=== PATIENT | female | born 1990 | race Caucasian/White ===

== ENCOUNTER 2021-11-16 17:20 | Inpatient (IN) | payer OTHER ==
[2021-11-16] MEDS ORDERED: OXYTOCIN 10 UNIT/1 ML INJ ONE (18:26)
--- NOTE | 2021-11-16 19:18 | History and Physical Report ---
History of Present Illness Date of examination: 11/16/21 Date of admission: 11/16/21 Chief complaint: Contractions, No movements for 3 days. History of present illness: previous section. No care, 33 wks. Past History Past Medical History: no pertinent history - Obstetrical History : 3 Medications and Allergies Allergies Allergy/AdvReac Type Severity Reaction Status Date / Time codeine Allergy Rash Verified 03/09/13 04:06 hydrocodone [Hydrocodone] Allergy Rash Verified 03/09/13 04:06 Home Medications Medication Instructions Recorded Confirmed Last Taken Type Pnv95/Ferrous Fumarate/FA 1 each PO QDAY #90 tablet 03/09/13 09/18/13 09/17/13 08:00 Rx [ Vitamins] Ibuprofen [Motrin 600 MG tab] 800 mg PO Q8H PRN #30 tablet 09/21/13 Unknown Rx oxyCODONE /ACETAMINOPHEN [Percocet 1 tab PO Q4HR #30 tablet 09/21/13 Unknown Rx 5/325 mg] predniSONE [Deltasone] 20 mg PO TID #15 tab 05/17/14 Unknown Rx Review of Systems All systems: negative Genitourinary: contractions, other (No movements.) - Vital Signs Vital signs: Vital Signs Pulse Pulse Ox 116 H 99 11/16/21 17:59 11/16/21 17:59 Temp Pulse Resp BP Pulse Ox 81 109/70 99 11/16/21 19:11 11/16/21 19:09 11/16/21 19:11 - Physical Exam Lungs: Positive: Normal air movement Abdomen: Positive: distention Genitourinary (Female): Positive: normal external genitalia Vulva: both: normal Vagina: Positive: normal moisture. Negative: discharge Uterus: Positive: enlarged Deep Tendon Reflex Grade: Normal +2 - Obstetrical FHR: other (No heart tones. Bedside ultrasound - ne heart beats, no movements.) Uterine Contraction Pattern: Regular Results All other labs normal. Assessment and Plan - Patient Problems (1) with 33 completed weeks gestation Current Visit: Yes Status: Acute (2) Vaginal delivery following previous section, delivered Current Visit: Yes Status: Acute (3) Previous delivery affecting Current Visit: Yes Status: Acute (4) IUFD at 20 weeks or more of gestation Current Visit: Yes Status: Acute Plan to address problem: Macerated fetus delivered.
[2021-11-16] MEDS ORDERED: KETOROLAC 30 MG/1 ML INJ IV PRN (19:20)
[2021-11-16] MEDS ORDERED: PROMETHAZINE 25 MG RECT SUPP PR PRN (19:20)
[2021-11-16] MEDS ORDERED: diphenhydrAMINE 25 MG CAP PO PRN (19:20)
[2021-11-16] MEDS ORDERED: PROMETHAZINE 25 MG TAB PO PRN (19:20)
[2021-11-16] MEDS ORDERED: ONDANSETRON 4 MG/2 ML INJ IV PRN (19:20)
[2021-11-16] MEDS ORDERED: MAGNESIUM HYDROXIDE (MOM) ORAL LIQD UDC PO PRN (19:20)
[2021-11-16] MEDS ORDERED: LANOLIN/ZINC/DIMETHICONE (LANSINOH) 7 GM TP PRN (19:20)
[2021-11-16] MEDS ORDERED: WITCH HAZEL/ GLYCERIN PAD TP PRN (19:20)
[2021-11-16] MEDS ORDERED: HYDROcodone/ACETAMINOPHEN 5-325 MG TAB PO PRN (19:20)
--- NOTE | 2021-11-16 19:24 | Procedure Note ---
OB Delivery Note - Delivery Date of Delivery: 11/16/21 Surgeon: AROLDO TIPTON Estimated blood loss: <100cc - Vaginal Delivery presentation: vertex Delivery position: OA Delivery induction: none Delivery monitor: none (Bedside ultrasound) Route of delivery: Delivery placenta: spontaneous, expressed Episiotomy: none Delivery laceration: none Anesthesia: none - Infant A at 1 minute: 0 at 5 minutes: 0 Infant Gender: Male (Macerated fetus.)
[2021-11-16 21:34] LABS: Hematocrit 31.3 % (30.3-42.9); Mean Corpuscular HGB Conc 35 % (30-34); Mean Corpuscular Volume 82 fl (79-97); Platelet Count 382 K/mm3 (140-440); Red Blood Count 3.82 M/mm3 (3.65-5.03); Red Cell Distribution Width 13.4 % (13.2-15.2)
[2021-11-16 22:03] LABS: Hepatitis C Virus Antibody Non-Reactive (NonReactive)
[2021-11-16 22:19] LABS: HCG,Quantitative 10982 mIU/mL (0-4)
[2021-11-16] MEDS ORDERED: PENICILLIN G BENZATHINE 1.2 MILLION UNIT/2 ML INJ IM ONE (23:57)
[2021-11-17 00:12] LABS: Basophils % (Manual) 0 % (0.0-1.8); Eosinophils % (Manual) 0 % (0.0-4.3); Total Cells Counted 100
[2021-11-17 00:13] LABS: Platelet Estimate Appears Increased; RBC Morphology Normal
[2021-11-17 06:48] LABS: Bilirubin,Urine NEG (Negative); Blood,Urine LG (Negative); Color,Urine Yellow (Yellow); Protein,Urine <15 mg/dL mg/dL (Negative); Urobilinogen,Urine < 2.0 mg/dL (<2.0)
[2021-11-17 06:56] LABS: Benzodiazepines Screen,Urine Negative; Cocaine Screen,Urine Negative; Methadone Screen,Urine Negative; Opiate Screen,Urine Negative
[2021-11-17 07:17] LABS: Amphetamine Screen,Urine Positive; Cannabinoid Screen,Urine Positive
[2021-11-17 07:35] LABS: RBC,Urine < 1.0 /HPF (0.0-6.0); WBC,Urine < 1.0 /HPF (0.0-6.0)
[2021-11-17 08:38] LABS: Hematocrit 31.3 % (30.3-42.9); Hemoglobin 10.3 gm/dl (10.1-14.3)
[2021-11-17] MEDS: ACETAMINOPHEN 325 MG TAB PO PRN ×2 (10:19→18:29)
--- NOTE | 2021-11-17 17:01 | Progress Note ---
Assessment and Plan - Patient Problems (1) with 33 completed weeks gestation Current Visit: Yes Status: Resolved (2) Vaginal delivery following previous section, delivered Current Visit: Yes Status: Resolved (3) Previous delivery affecting Current Visit: Yes Status: Acute (4) IUFD at 20 weeks or more of gestation Current Visit: Yes Status: Resolved Plan to address problem: Offered services included in IUFD aftercare including counseling, pastoral care, naming, pathology, autopsy. will f/u with own MD. Subjective - Subjective Date of service: 11/17/21 Principal diagnosis: staus post vag delivery day 1. Interval history: previous section. No care, 33 wks. IUFD- delivered 11/16/21 Patient reports: appetite normal, voiding normally, pain well controlled, ambulating normally : other (IUFD) Objective - Vital Signs Latest vital signs: Vital Signs Temp Pulse Resp BP BP Pulse Ox Pulse Ox 11/17/21 13:19 98.4 F 83 18 105/65 100 11/17/21 09:10 100 11/17/21 07:50 98.5 F 66 18 111/74 100 11/17/21 04:54 98.4 F 81 18 123/75 100 11/17/21 01:14 98.1 F 87 20 117/79 97 11/16/21 21:10 97.7 F 85 18 120/77 97 97 11/16/21 21:01 98.5 F 11/16/21 19:51 94 H 100 11/16/21 19:46 88 99 11/16/21 19:41 80 99 99 11/16/21 19:39 83 114/72 11/16/21 19:36 88 100 11/16/21 19:31 76 98 11/16/21 19:26 76 100 11/16/21 19:24 77 113/72 11/16/21 19:21 79 99 11/16/21 19:16 87 99 11/16/21 19:11 81 99 11/16/21 19:09 90 109/70 11/16/21 19:06 96 H 99 11/16/21 19:01 89 100 11/16/21 18:56 93 H 99 11/16/21 18:54 106 H 115/67 11/16/21 18:51 85 100 11/16/21 18:46 89 98 11/16/21 18:41 114 H 100 11/16/21 18:39 95 H 120/80 87 11/16/21 18:36 103 H 100 11/16/21 18:31 84 100 11/16/21 18:26 105 H 100 11/16/21 18:21 66 78 L 11/16/21 18:20 101 H 124/55 11/16/21 18:04 111 H 100 11/16/21 17:59 116 H 99 Intake and Output 11/17/21 11/17/21 11/17/21 07:59 15:59 23:59 Intake Total 730 Output Total 600 300 Balance -600 430 Intake: Oral 730 Output: Urine 600 300 Void 600 300 Other: Total, Intake Amount 370 Total, Output Amount 600 300 # Voids Void 1 - Exam Lungs: Present: Normal air movement Abdomen: Present: normal appearance, soft Uterus: Present: normal, firm Extremities: Present: normal Deep Tendon Reflex Grade: Normal +2 - Labs Labs: Abnormal lab results 11/16/21 11/16/21 11/16/21 Range/Units 21:19 21:19 21:19 WBC 19.2 H (4.5-11.0) K/mm3 MCHC 35 H (30-34) % Seg Neuts % (Manual) 87.0 H (40.0-70.0) % Lymphocytes % (Manual) 12.0 L (13.4-35.0) % Seg Neutrophils # Man 16.7 H (1.8-7.7) K/mm3 HCG, Quant 26523 H (0-4) mIU/mL Syphilis IgG/IgM Ab Reactive A (NonReactive)
--- NOTE | 2021-11-17 17:03 | Discharge Summary ---
Providers - Providers Date of Admission: 11/17/21 00:57 Date of discharge: 11/17/21 Attending physician: AROLDO TIPTON MD 11/17/21 11:05 Consult to Case Management [CONS] Urgent Services Needed at Discharge: [employer] Product Sales Consultant Notified:: JOSE E Phone number called:: [phone] Additional Physician Instructions: IUFD @ 33 weeks and UDS positive THC and amphetamines Primary care physician: AROLDO TIPTON MD Hospitalization Reason for admission: active labor, IUFD Delivery: Episiotomy: none Laceration: none complications: none Discharge diagnosis: other (IUFD before presentation.) [place] baby: male Condition at discharge: Good Disposition: 01 HOME / SELF CARE / HOMELESS - Discharge Diagnoses (1) with 33 completed weeks gestation Status: Resolved (2) Vaginal delivery following previous section, delivered Status: Resolved (3) Previous delivery affecting Status: Acute (4) IUFD at 20 weeks or more of gestation Status: Resolved Plan - Provider Discharge Summary Activity: routine, no sex for 6 weeks, no heavy lifting 4 weeks, no strenuous exercise Diet: routine Instructions: routine Additional instructions: [] Smoking cessation referral if applicable(refer to patient education folder for contact #) [] Refer to [facility] Booklet Call your doctor immediately for: * Fever > 100.5 * Heavy vaginal bleeding ( >1 pad per hour) * Severe persistent headache * Shortness of breath * Reddened, hot, painful area to leg or breast * Drainage or odor from incision. * Keep incision clean and dry at all times and follow doctor's instructions regarding bathing/showering - Follow up plan Follow up: AROLDO TIPTON MD [Primary Care Provider] - 7 Days
[2021-11-17 18:40] VITALS: BP 102/59
== END 2021-11-17 19:15 | disposition left against medical advice (07) | DRG 775 ==
LOC: TRG 17:20 → APU 17:20 → LD 18:18 → OB 22:15 → TRG 11-17 00:54 → OB 11-17 00:57
PROVIDERS: ADMIT Obstetrics & Gynecology; ATTEND Obstetrics & Gynecology
PROC: 10E0XZZ Delivery of Products of Conception, External Approach (ICD-10-PCS; principal; 2021-11-16)
DX: O36.4XX0 Maternal care for intrauterine death, not applicable or unspecified (principal); Z3A.33 33 weeks gestation of pregnancy; Z37.0 Single live birth; Z88.5 Allergy status to narcotic agent; Z20.822 Contact with and (suspected) exposure to COVID-19; O60.14X0 Preterm labor third trimester with preterm delivery third trimester, not applicable or unspecified; O34.211 Maternal care for low transverse scar from previous cesarean delivery; Z37.1 Single stillbirth
CPT/HCPCS: 36415; 80307; 81001; 84702; 85007; 85014; 85018; 85025; 86592; 86593; 86706; 86762; 86780; 86803; 87806; 88307; G0378; J0561

== ENCOUNTER 2021-12-26 11:05 | Emergency (ER) | payer OTHER ==
[2021-12-26 11:12] VITALS: BP 134/86
== END 2021-12-26 14:00 | disposition left against medical advice (07) ==
LOC: ED 11:05
DX: T50.901A Poisoning by unspecified drugs, medicaments and biological substances, accidental (unintentional), initial encounter (principal); Z53.21 Procedure and treatment not carried out due to patient leaving prior to being seen by health care provider; Y92.89 Other specified places as the place of occurrence of the external cause